=== PATIENT | female | born 1995 | race Caucasian/White ===

== ENCOUNTER 2020-10-31 14:05 | Observation (INO) | payer OTHER ==
[~2020-10-31] VITALS: Ht 154.9 cm; Wt 82.6 kg
[2020-10-31 15:08] VITALS: BP 124/72
[2020-10-31] MEDS ORDERED: FERR-89 PO (15:10)
[2020-10-31] MEDS ORDERED: PREN-217 PO (15:10)
== END 2020-10-31 18:45 | disposition home or self-care (01) ==
LOC: 4S 14:05
PROVIDERS: ADMIT Obstetrics & Gynecology; ATTEND Obstetrics & Gynecology
DX: Z34.93 Encounter for supervision of normal pregnancy, unspecified, third trimester (principal); Z3A.38 38 weeks gestation of pregnancy
CPT/HCPCS: 59025; 99219

== ENCOUNTER 2020-10-31 21:26 | Observation (INO) | payer OTHER ==
[~2020-10-31] VITALS: Ht 154.9 cm; Wt 83.5 kg
[~2020-10-31 21:26] MED LIST: FERR-89 PO; PREN-217 PO
[2020-11-01 20:43] VITALS: BP 120/71
[2020-11-01 21:47] LABS: COVID AG,FIA SOURCE NASOPHARYNGEAL
[2020-11-06] MEDS ORDERED: IBUP-2071 PO (09:19)
[2020-11-06] MEDS ORDERED: DOCU-275 PO (09:20)
== END 2020-11-01 23:00 | disposition home or self-care (01) ==
LOC: UNDOADMOB 11-01 20:30 → 4S 11-01 20:30
PROVIDERS: ADMIT Obstetrics & Gynecology; ATTEND Obstetrics & Gynecology
DX: O62.9 Abnormality of forces of labor, unspecified (principal); Z20.822 Contact with and (suspected) exposure to COVID-19; Z3A.39 39 weeks gestation of pregnancy
CPT/HCPCS: 59025; 87426; 99219

== ENCOUNTER 2020-11-03 14:10 | Observation (INO) | payer OTHER ==
[~2020-11-03] VITALS: Ht 154.9 cm; Wt 83.0 kg
[2020-11-03 16:35] VITALS: BP 111/69
[2020-11-06] MEDS ORDERED: IBUP-2071 PO (09:19)
[2020-11-06] MEDS ORDERED: DOCU-275 PO (09:20)
== END 2020-11-03 20:22 | disposition home or self-care (01) ==
LOC: 4S 14:10 → UNDOADMOB 14:10 → 4S 16:10 → UNDODISOB 20:22
PROVIDERS: ADMIT Obstetrics & Gynecology; ATTEND Obstetrics & Gynecology
DX: O62.9 Abnormality of forces of labor, unspecified (principal); Z3A.39 39 weeks gestation of pregnancy
CPT/HCPCS: 59025; 96360; 96361; 99219; 81001-TC; G0378; Z7514